=== PATIENT | male | born 1940 | race Caucasian/White ===

== ENCOUNTER → 2023-11-25 14:25 | Outpatient (REF) | payer OTHER, SELFPAY | LOC: RAD 14:25 | PROVIDERS: ATTENDING PHYSICIAN Surgery Vascular Surgery | DX: I77.0 Arteriovenous fistula, acquired (principal) | CPT/HCPCS: 93990 ==

== ENCOUNTER 2023-12-25 08:05 | Day surgery (SDC) | payer OTHER, SELFPAY ==
[2023-12-25] VITALS (8 sets, daily range): BP systolic 106–119; BP diastolic 47–64; BMI 23.8
--- NOTE | 2023-12-25 08:33 | W.SUR.PREOP ---
Pre-Operative Surgical Note
-
I have examined this patient prior to the performance of the scheduled procedure.
The patient's condition is unchanged from the time of the current History and
Physical and the patient is able to undergo the scheduled procedure.
[2023-12-25 09:12] LABS: Hematocrit 33.7 % (39.0-52.0); Hemoglobin 11.1 g/dL (13.0-18.0); Mean Corp Hgb Conc. 32.9 g/dL (33.0-37.0); Mean Corpuscular Hgb 31.2 pg (27.0-31.0); Mean Corpuscular Volume 94.7 fL (80.0-94.0); Mean Platelet Volume 10.6 fL (7.4-10.4); Platelet Count 145 10^3/uL (130-400); Red Blood Cell Count 3.56 10^6/uL (4.70-6.10); Red Cell Dist. Width 20.9 % (11.5-14.5); White Blood Cell Count 6.5 10^3/uL (4.8-10.8)
[2023-12-25 09:13] LABS: INR 1.33; PT 16.6 Sec (11.4-14.6)
[2023-12-25 09:14] LABS: APTT 36.5 Sec (23.4-35.0)
[2023-12-25 09:23] LABS: Blood Urea Nitrogen 23 mg/dl (9-20); Calcium 8.7 mg/dl (8.4-10.2); Carbon Dioxide 30 mmol/L (22-30); Chloride 98 mmol/L (98-107); Estimated Creatinine Clearance 16 ml/min; Glucose 100 mg/dl (70-99); Potassium 3.4 mmol/L (3.5-5.1); Sodium 134 mmol/L (135-145); eGFR 17.93
--- NOTE | 2023-12-25 10:06 | W.SUR.POST ---
Surgical Immediate Post Op
Note
Pre Op Diagnosis: ESRD
Post Op Diagnosis: same
Procedure Performed: RUE fistulagram, balloon angioplasty outflow vein stenosis
Primary Surgeon: Jose
Anesthesia: local and sedation
Estimated Blood Loss: <2cc
Fluids: see anesthesia flow sheet
Drains/Shunts: none
Specimens/Cultures: none
Doppler/Duplex/Angio (Y/N): Y
Complications: none
Operative Findings: +thrill
[2023-12-25 10:48] LABS: Glucose - Point of Care 90 mg/dl (70-99)
--- NOTE | 2023-12-25 10:54 | OR.RPT ---
Operative Report
Operative Report
PROCEDURE DATE: 12/25/2023
Preoperative diagnosis:
1. End-stage renal disease on hemodialysis.
2. Nonmaturing/failing right upper extremity AV fistula.
Postoperative diagnosis: Same
Procedure:
1. Duplex assisted cannulation of right upper extremity arteriovenous fistula.
2. Right upper extremity fistulogram and central venogram.
3. Balloon angioplasty of outflow vein stenosis (adjacent to anastomosis) with 5 mm and 6 mm standard angioplasty balloon.
4. Supervision and interpretation.
Surgeon: Jose
Assembly Inspector: None
Complications: None
Anesthesia: Local, sedation
Fluoroscopy:
3.8 min
6 mGy
1.33 Gy.cm2
Indications for procedure:
Fistula (brachiobasilic transposed) placed at outside institution prior to my knowing him. Presented for evaluation of fistula and not maturation. Risk/benefit/alternatives of fistulogram were also discussed. Patient understood all wish to
proceed. Ultrasound had demonstrated a potential stenosis in the outflow vein just adjacent to the anastomosis.
Description of procedure:
Patient was identified, brought to the operating room. Placed on the table in the supine position. After the adequate administration of anesthesia, the patient was prepped and draped in the standard surgical fashion. A standard preoperative
timeout was undertaken and everybody was in agreement with the plan.
The outflow basilic vein was punctured in the mid upper arm and a peripheral facing direction under direct duplex ultrasound guidance using a micropuncture kit. A 5 Irish sheath was then advanced over a 0.035 inch wire. Fistulogram and central
venogram demonstrated patent fistula vein/outflow vein immediately adjacent to the sheath and filling centrally. No evidence of significant central venous stenosis. May be a mild stenosis in the brachiocephalic vein where the internal jugular
tunneled dialysis catheter came into place. But did not appear to be a significant stenosis. At this point I selectively cannulated the outflow artery and then advanced a glide catheter over the wire. Angiogram demonstrated a patent anastomosis
with no anastomotic stenosis. However just beyond the anastomosis there was a segment of about 2 to 3 cm of diseased vein/severe stenosis. Of note the inflow and outflow arteries were patent, but moderately diseased with atherosclerotic plaque.
No identifiable high-grade stenosis in the arteries was noted. At this point I then exchanged for a 0.018 inch wire in the outflow artery. I then performed balloon angioplasty of the severely stenotic segment of vein. I initially did this with a
5 mm angioplasty balloon. Completion angiogram demonstrated good result, but still mild residual stenosis. Therefore I then used a 6 mm balloon. Completion angiogram now demonstrated no real significant stenosis. The vein was still little bit
smaller than the more dilated vein adjacent to it (more centrally). However the prior stenosis was significantly resolved. At this point also the flow through the injection went directly through the fistula more briskly and did not reflux into the
proximal artery anymore suggesting enhanced flow through the fistula. At this point is very satisfied. I withdrew my wires and catheters. A 4-0 Monocryl pursestring stitch was placed around the sheath entry site. This was tied down as the sheath
was withdrawn and manual pressure was also gently applied. Hemostasis was completely achieved. There was a reasonable thrill in the fistula upon completion.
The patient tolerated procedure well.
== END 2023-12-25 11:30 | disposition home or self-care (01) ==
LOC: CATH 08:05
PROVIDERS: ATTENDING PHYSICIAN Surgery Vascular Surgery; FAMILY PHYSICIAN Family Medicine; OTHER PHYSICIAN Internal Medicine Cardiovascular Disease
DX: T82.858A Stenosis of other vascular prosthetic devices, implants and grafts, initial encounter (principal); Y83.2 Surgical operation with anastomosis, bypass or graft as the cause of abnormal reaction of the patient, or of later complication, without mention of misadventure at the time of the procedure; I12.0 Hypertensive chronic kidney disease with stage 5 chronic kidney disease or end stage renal disease; N18.6 End stage renal disease; Z99.2 Dependence on renal dialysis; J44.9 Chronic obstructive pulmonary disease, unspecified
CPT/HCPCS: 36902; C1725; 80048; 82962; 85027; 85610; 85730; 86850; 86870; 86900; 86901; 86905; 93005; C1769

== ENCOUNTER → 2024-01-22 11:10 | Outpatient (REF) | payer OTHER, SELFPAY | LOC: RAD 11:10 | PROVIDERS: ATTENDING PHYSICIAN Surgery Vascular Surgery; FAMILY PHYSICIAN Family Medicine | DX: I77.0 Arteriovenous fistula, acquired (principal) | CPT/HCPCS: 93990 ==